=== PATIENT | male | born 2000 | race Caucasian/White ===

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

== ENCOUNTER 2021-07-17 14:46 | Emergency (ER) | payer OTHER ==
[2021-07-17 17:02] LABS: INFLUENZA A NAA NEGATIVE (NEGATIVE)
[2021-07-17 17:07] LABS: CORONAVIRUS 2019 SARS-COV-2 POSITIVE (NEGATIVE)
[2021-07-17] MEDS ORDERED: ONDANSETRON ODT4 MG PO (18:41)
[2021-07-17] MEDS ORDERED: MUCINEX D TABL1 EACH PO (18:41)
[2021-07-17] MEDS ORDERED: VENTOLIN HFA18 GM INH (18:41)
[2021-07-17] MEDS ORDERED: NAPROXEN500 MG PO (18:41)
== END 2021-07-17 19:20 | disposition home or self-care (01) ==
LOC: FER 14:46
PROVIDERS: Emergency Medicine
DX: U07.1 COVID-19 (principal)
CPT/HCPCS: 94010; 99284; U0002

== ENCOUNTER 2022-04-11 17:22 | Emergency (ER) | payer OTHER ==
[~2022-04-11 17:22] MED LIST: MUCINEX D TABL1 EACH PO; NAPROXEN500 MG PO; ONDANSETRON ODT4 MG PO; VENTOLIN HFA18 GM INH
== END 2022-04-11 19:00 | disposition other institution (70) ==
LOC: FER 17:22
DX: S68.623A Partial traumatic transphalangeal amputation of left middle finger, initial encounter (principal); S68.625A Partial traumatic transphalangeal amputation of left ring finger, initial encounter; Z23 Encounter for immunization; X58.XXXA Exposure to other specified factors, initial encounter; Y93.89 Activity, other specified; Y92.009 Unspecified place in unspecified non-institutional (private) residence as the place of occurrence of the external cause; Z28.310 Unvaccinated for COVID-19
CPT/HCPCS: 73130; 90471; 90715; J1170